=== PATIENT | male | born 1935 | race Caucasian/White ===

== ENCOUNTER 2021-05-07 11:56 | Outpatient (CLI) | payer MEDICARE | END 2021-05-07 11:57 | disposition home or self-care (01) | LOC: CSHWCC 11:56 | PROVIDERS: ATTEND Nurse Practitioner Family | DX: T81.89XD Other complications of procedures, not elsewhere classified, subsequent encounter (principal) | CPT/HCPCS: 97139; 97605; G0463; 99203 ==

== ENCOUNTER 2021-05-09 09:30 | Outpatient (CLI) | payer MEDICARE | END 2021-05-09 09:31 | disposition home or self-care (01) | LOC: CSHWCC 09:30 | PROVIDERS: ATTEND Nurse Practitioner Family | DX: T81.89XA Other complications of procedures, not elsewhere classified, initial encounter (principal) | CPT/HCPCS: 97605 ==

== ENCOUNTER 2021-05-13 08:51 | Outpatient (CLI) | payer MEDICARE | END 2021-05-13 08:52 | disposition home or self-care (01) | LOC: CSHWCC 08:51 | PROVIDERS: ATTEND Nurse Practitioner Family | DX: T81.89XD Other complications of procedures, not elsewhere classified, subsequent encounter (principal) | CPT/HCPCS: 97605; 99212; G0463 ==

== ENCOUNTER 2021-05-16 08:32 | Outpatient (CLI) | payer MEDICARE | END 2021-05-16 08:33 | disposition home or self-care (01) | LOC: CSHWCC 08:32 | PROVIDERS: ATTEND Nurse Practitioner Family | DX: T81.89XD Other complications of procedures, not elsewhere classified, subsequent encounter (principal) | CPT/HCPCS: 97605 ==

== ENCOUNTER 2021-05-20 15:08 | Outpatient (CLI) | payer MEDICARE | END 2021-05-20 15:09 | disposition home or self-care (01) | LOC: CSHWCC 15:08 | PROVIDERS: ATTEND Nurse Practitioner Family | DX: T81.89XD Other complications of procedures, not elsewhere classified, subsequent encounter (principal) | CPT/HCPCS: 97605 ==

== ENCOUNTER 2021-05-23 11:26 | Outpatient (CLI) | payer MEDICARE | END 2021-05-23 11:27 | disposition home or self-care (01) | LOC: CSHWCC 11:26 | PROVIDERS: ATTEND Nurse Practitioner Family | DX: T81.89XD Other complications of procedures, not elsewhere classified, subsequent encounter (principal) | CPT/HCPCS: 97605 ==

== ENCOUNTER 2021-05-27 15:11 | Outpatient (CLI) | payer MEDICARE | END 2021-05-27 15:12 | disposition home or self-care (01) | LOC: CSHWCC 15:11 | PROVIDERS: ATTEND Nurse Practitioner Family | DX: T81.89XD Other complications of procedures, not elsewhere classified, subsequent encounter (principal) ==

== ENCOUNTER 2021-06-30 09:52 | Outpatient (CLI) | payer MEDICARE | END 2021-06-30 09:53 | disposition home or self-care (01) | LOC: CSHWCC 09:52 | PROVIDERS: ATTEND Nurse Practitioner Family | DX: T81.89XD Other complications of procedures, not elsewhere classified, subsequent encounter (principal) | CPT/HCPCS: 97605; 99212; G0463 ==

== ENCOUNTER 2021-07-15 13:04 | Outpatient (CLI) | payer MEDICARE | END 2021-07-15 13:05 | disposition home or self-care (01) | LOC: CSHWCC 13:04 | PROVIDERS: ATTEND Nurse Practitioner Family | DX: T81.89XD Other complications of procedures, not elsewhere classified, subsequent encounter (principal) | CPT/HCPCS: 97605 ==

== ENCOUNTER 2021-07-18 11:03 | Outpatient (CLI) | payer MEDICARE | END 2021-07-18 11:04 | disposition home or self-care (01) | LOC: CSHWCC 11:03 | PROVIDERS: ATTEND Nurse Practitioner Family | DX: T81.89XD Other complications of procedures, not elsewhere classified, subsequent encounter (principal) | CPT/HCPCS: 97605 ==

== ENCOUNTER 2021-07-22 11:49 | Outpatient (CLI) | payer MEDICARE | END 2021-07-22 11:50 | disposition home or self-care (01) | LOC: CSHWCC 11:49 | PROVIDERS: ATTEND Nurse Practitioner Family | DX: T81.89XD Other complications of procedures, not elsewhere classified, subsequent encounter (principal) | CPT/HCPCS: 97605 ==

== ENCOUNTER 2021-07-25 08:56 | Outpatient (CLI) | payer MEDICARE | END 2021-07-25 08:57 | disposition home or self-care (01) | LOC: CSHWCC 08:56 | PROVIDERS: ATTEND Nurse Practitioner Family | DX: T81.89XD Other complications of procedures, not elsewhere classified, subsequent encounter (principal) | CPT/HCPCS: 99213; G0463 ==

== ENCOUNTER 2021-07-29 11:14 | Outpatient (CLI) | payer MEDICARE | END 2021-07-29 11:15 | disposition home or self-care (01) | LOC: CSHWCC 11:14 | PROVIDERS: ATTEND Nurse Practitioner Family | DX: T81.89XD Other complications of procedures, not elsewhere classified, subsequent encounter (principal) | CPT/HCPCS: 99212; G0463 ==

== ENCOUNTER 2021-08-01 10:55 | Outpatient (CLI) | payer MEDICARE | END 2021-08-01 10:56 | disposition home or self-care (01) | LOC: CSHWCC 10:55 | PROVIDERS: ATTEND Nurse Practitioner Family | DX: T81.89XD Other complications of procedures, not elsewhere classified, subsequent encounter (principal) | CPT/HCPCS: 97139; G0463; 99212 ==

== ENCOUNTER 2021-08-05 10:12 | Outpatient (CLI) | payer MEDICARE | END 2021-08-05 10:13 | disposition home or self-care (01) | LOC: CSHWCC 10:12 | PROVIDERS: ATTEND Nurse Practitioner Family | DX: T81.89XD Other complications of procedures, not elsewhere classified, subsequent encounter (principal) | CPT/HCPCS: 99212; G0463 ==

== ENCOUNTER 2021-08-19 11:27 | Outpatient (CLI) | payer MEDICARE | END 2021-08-19 11:28 | disposition home or self-care (01) | LOC: CSHWCC 11:27 | PROVIDERS: ATTEND Nurse Practitioner Family | DX: T81.89XD Other complications of procedures, not elsewhere classified, subsequent encounter (principal) | CPT/HCPCS: 99212; G0463 ==

== ENCOUNTER 2021-08-20 12:19 | Outpatient (CLI) | payer MEDICARE ==
[2021-08-20 12:47] LABS: Estimated GFR-MDRD - POC Greater than 90
== END 2021-08-20 12:20 | disposition home or self-care (01) ==
LOC: CSHCT 12:19
PROVIDERS: ATTEND Internal Medicine Gastroenterology
DX: R10.12 Left upper quadrant pain (principal); K57.90 Diverticulosis of intestine, part unspecified, without perforation or abscess without bleeding; K44.9 Diaphragmatic hernia without obstruction or gangrene
CPT/HCPCS: 74177; 82565

== ENCOUNTER 2022-07-20 13:31 | Outpatient (CLI) | payer MEDICARE ==
[~2022-07-20 13:31] MED LIST: Magnevist 469MG/ML 20 ML VIAL ONE
== END 2022-07-20 13:32 | disposition home or self-care (01) ==
LOC: CSHMRI 13:31
PROVIDERS: ATTEND Urology
DX: R97.20 Elevated prostate specific antigen [PSA] (principal); N42.9 Disorder of prostate, unspecified
CPT/HCPCS: 72197; 82565; A9579